=== PATIENT | female | born 1945 | race Caucasian/White ===

== ENCOUNTER → 2017-06-05 | Outpatient (CLI) | payer MEDICARE, OTHER ==
--- NOTE | 2017-06-05 17:35 | RADIOLOGY REPORT PS360 ---
US [id number] HISTORY: FLANK PAIN ORDERING PHYSICIAN: Matilde Becker APRN PATIENT AGE: 71 years COMPARISON: None FINDINGS: RIGHT KIDNEY:Unremarkable. Normal size and echogenicity. No hydronephrosis. Right kidney is not by 4 x 6 cm. Mild cortical thinning LEFT KIDNEY:Unremarkable. No hydronephrosis. Normal size and echogenicity.. The left kidney is 10 x 4 x 6 cm with some mild cortical thinning superiorly OTHER FINDINGS: No other pertinent findings IMPRESSION: 1. No hydronephrosis. No obvious large renal calculi. 2. Mild bilateral renal cortical thinning
== END ==
LOC: RAD 12:36
DX: R10.11 Right upper quadrant pain (principal); R10.12 Left upper quadrant pain; E11.29 Type 2 diabetes mellitus with other diabetic kidney complication

== ENCOUNTER → 2017-07-01 | Outpatient (CLI) | payer MEDICARE, OTHER ==
--- NOTE | 2017-07-01 16:05 | RADIOLOGY REPORT PS360 ---
EXAM: LUMBAR SPINE 5 VIEWS HISTORY: LOW BACK PAIN ORDERING PHYSICIAN: Raeann DENNY PATIENT AGE: 71 years COMPARISON: None FINDINGS: There is mild degenerative disc disease at L2-L3 and severe degenerative disc disease L5-S1 with grade 1 spondylolisthesis of L5 on S1. Facet arthritic changes are present at L4-L5 and L5-S1. No fracture or dislocation. No lytic or blastic change. IMPRESSION: 1. Severe facet arthritic change and degenerative disc disease with grade 1 spondylolisthesis of L5 on S1. 2. Mild degenerative disc disease L2-L3
== END ==
LOC: RAD 14:37
DX: M54.5 Low back pain (principal)

== ENCOUNTER → 2017-07-22 | Outpatient (CLI) | payer MEDICARE, OTHER ==
--- NOTE | 2017-07-23 10:26 | RADIOLOGY REPORT PS360 ---
MRI-L-SPINE W/O, MRI-3D RENDERING/MYELOGRAM HISTORY: Left-sided low back pain and buttock pain LEFT FLANK PAIN, LUMBAR BACK PAIN ORDERING PHYSICIAN: Raeann DENNY PATIENT AGE: 71 years COMPARISON: Radiograph of 07/01/2017 TECHNIQUE: Standard multiplanar multiecho sequences are performed without contrast. 3-D MIP and myelographic images are also rendered and reviewed FINDINGS: There is normal alignment. The spinal cord ends at the L1 level. T10-T11: Mild degenerative disc disease. L1-L2: Unremarkable. L2-L3: Mild degenerative disc disease with mild disc desiccation. L3-L4: Unremarkable. L4-5: Mild facet and ligamentum flavum hypertrophy with mild to moderate bilateral lateral recess and foraminal narrowing. There is transverse narrowing of the canal at 10 mm. L5-S1: There is grade 1 non spondylitic spondylolisthesis of L5 on S1 of 7 mm with pseudo disc bulge and canal stenosis of 10 mm along with moderate facet hypertrophic change with moderate to severe bilateral foraminal narrowing. No extruded herniated disc evident. IMPRESSION: 1. Mild lumbar spondylosis with degenerative disc disease and facet and ligamentum hypertrophy as detailed above. 2. Mild facet and ligamentum flavum hypertrophy at L4-5 with mild to moderate bilateral lateral recess and foraminal narrowing. There is transverse narrowing of the canal at 10 mm. 3. There is grade 1 non spondylitic spondylolisthesis of L5 on S1 of 7 mm with pseudo disc bulge and canal stenosis of 10 mm along with moderate facet hypertrophic change with moderate to severe bilateral foraminal narrowing
== END ==
LOC: RAD 15:38
DX: R10.9 Unspecified abdominal pain (principal); M54.5 Low back pain